=== PATIENT | male | born 1975 | race Caucasian/White ===

== ENCOUNTER 2020-04-26 12:33 | Emergency (ER) | payer MEDICAID, SELFPAY ==
[2020-04-26 12:34] VITALS: BP 156/118; PULSE 102; RESP 15; TEMP 36.3; O2SAT 97; BMI 30.5
[2020-04-26] MEDS: Ketorolac 30 MG/ML Syringe IM (13:05)
--- NOTE | 2020-04-26 13:23 | ED.VISSUMM ---
- ER Visit Summary Date of Service: 04/26/20 Chief Complaint: Medication refill History of Present Illness: The patient is a 44 M patient is here for medication refill. He has been out of his medications for 2 weeks. He takes meds for depression, high cholesterol and hypertension. He states he has been intermittently getting headaches. They are sharp and a roaring noise in his right ear. 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 He has no new symptoms. He is following up with a new doctor in about 1 month. Physical Examination: Vital signs reviewed. HEENT exam unremarkable. Heart is regular rate and rhythm without murmurs. Lungs are clear to auscultation. Abdomen is soft and nontender. Extremities reveal no edema. Skin exam normal. Neurologic exam shows residual left arm and leg weakness from previous stroke Test Results: None performed Emergency Department Course and Treatment: Patient's headache is mild at this time. I will give him Toradol for this. I will refill his medications Treatment Plan: [] Disposition: Discharge Impression: Medication refill, headache This note was generated with [employer] dictation software. It may contain incorrect words, spelling, and punctuation that were not noted in review of the chart prior to signing ED Disposition - Plan for ED Patient: Disposition: Home or Assisted Living Instructions: Med Refill Prescriptions: Tamsulosin HCl [Flomax] 0.4 mg PO DAILY #30 cap Prescription Printed Escitalopram Oxalate [Lexapro] 20 mg PO DAILY #30 tab Prescription Printed Triamterene 37.5MG/Hctz 25MG [Maxzide 37.5 mg-25 mg Tablet] 1 tab PO DAILY #30 tab Prescription Printed Amlodipine Besylate [Norvasc] 10 mg PO DAILY #30 tab Prescription Printed Pantoprazole Sodium [Protonix] 40 mg PO DAILY #30 tab Prescription Printed Referrals: Care Physician,No Primary [Primary Care Provider] -
[2020-04-26 13:37] VITALS: BP 164/108; PULSE 99; RESP 16; O2SAT 97
== END 2020-04-26 13:42 | disposition home or self-care (01) ==
PROVIDERS: Emergency Provider Emergency Medicine
DX: Z76.0 Encounter for issue of repeat prescription (principal); R51 Headache; I10 Essential (primary) hypertension
CPT/HCPCS: 96372; 99282